=== PATIENT | male | born 1985 | race American Indian/Alaskan Native ===

== ENCOUNTER 2019-05-24 22:25 | Emergency (ER) | payer OTHER ==
[2019-05-24 23:19] VITALS: BP 111/76
[2019-05-25 00:03] LABS: Hematocrit 45.1 % (35.5-45.6); Hemoglobin 15.4 gm/dl (11.8-15.2); Mean Corpuscular HGB Conc 34 % (32-34); Mean Corpuscular Volume 89 fl (84-94); Platelet Count 276 K/mm3 (140-440); Red Blood Count 5.07 M/mm3 (3.65-5.03)
[2019-05-25 00:15] LABS: Alanine Aminotransferase 38 units/L (7-56); Albumin 3.9 g/dL (3.9-5); BUN/Creatinine Ratio 18; Blood Urea Nitrogen 16 mg/dL (9-20); Calcium 9.9 mg/dL (8.4-10.2); Hemolysis Index 18
[2019-05-25 00:29] LABS: Bacteria,Urine 1+ /HPF (Negative); Bilirubin,Urine NEG (Negative); Blood,Urine NEG (Negative); Color,Urine Yellow (Yellow); Mucus,Urine 2+ /HPF; Urobilinogen,Urine < 2.0 mg/dL (<2.0)
[2019-05-25] MEDS ORDERED: NACL 0.9% 1000 ML 1,000 ML IV ONE ×2 (00:47→02:42)
[2019-05-25] MEDS ORDERED: PEPCID IV ONE (00:47)
[2019-05-25] MEDS ORDERED: ZOFRAN IV ONE (00:47)
[2019-05-25] MEDS ORDERED: MORPHINE IV ONE (00:47)
[2019-05-25] MEDS ORDERED: BENADRYL IV ONE (02:42)
[2019-05-25] MEDS ORDERED: REGLAN IV ONE (02:42)
[2019-05-25] MEDS ORDERED: TORADOL IV ONE (02:42)
--- NOTE | 2019-05-25 03:07 | Cat Scan Report ---
CT ABDOMEN AND PELVIS WITH CONTRAST INDICATION: N/V/-left mid to lower ABDOMINAL PAIN CONTRAST: 100 cc Omnipaque 300 IV COMPARISON: None available. All CT scans at this location are performed using CT dose reduction for ALARA by means of automated e xposure control. FINDINGS: Lung bases are clear. No pneumoperitoneum is seen. Fatty attrition of the liver is seen wit hout obvious focal lesion and without significant enlargement. Spleen is not enlarged. No urinary obs tructive changes are seen. No evidence of bowel obstruction is noted. No free fluid is seen. Appendix appears within normal limits. IMPRESSION: No acute abnormalities are seen Signer Name: Raghu Lombardo MD Signed: 05/25/2019 3:03 AM Workstation Name: [id number]
--- NOTE | 2019-05-25 03:25 | Emergency Department Report ---
ED Abdominal Pain HPI - General Chief Complaint: Abdominal Pain Stated Complaint: VOMITING, STD SCREENING Time Seen by Provider: 05/25/19 00:47 Source: patient Mode of arrival: Ambulatory Limitations: No Limitations - History of Present Illness MD Complaint: abdominal pain, other (Nausea and vomiting, diarrhea) -: Sudden, days(s) (2) Location: epigastric Radiation: LUQ Migration to: LUQ, epigastric Severity scale (0 -10): 7 Quality: cramping, aching, sharp Consistency: intermittent Improves With: nothing Worsens With: nothing Context: possible food poisoning Associated Symptoms: denies other symptoms, nausea, vomiting, diarrhea. denies: chills, constipation, dysuria, hematemesis, hematochezia, melena, hematuria, anorexia, syncope - Related Data Previous Rx's Medication Instructions Recorded Last Taken Type Dicyclomine [Bentyl] 20 mg PO Q6H PRN #24 tablet 05/25/19 Unknown Rx Ondansetron [Zofran Odt] 4 mg PO Q6HR PRN #21 tab.rapdis 05/25/19 Unknown Rx raNITIdine HCl [Zantac] 150 mg PO Q12H #30 tablet 05/25/19 Unknown Rx Allergies Allergy/AdvReac Type Severity Reaction Status Date / Time No Known Allergies Allergy Unverified 05/24/19 23:20 ED Review of Systems ROS: Stated complaint: VOMITING, STD SCREENING Other details as noted in HPI Constitutional: denies: chills, fever Eyes: denies: eye pain, eye discharge, vision change ENT: denies: ear pain, throat pain Respiratory: denies: cough, shortness of breath, wheezing Cardiovascular: denies: chest pain, palpitations Endocrine: no symptoms reported Gastrointestinal: abdominal pain, vomiting, diarrhea. denies: nausea Genitourinary: denies: urgency, dysuria Musculoskeletal: denies: back pain, joint swelling, arthralgia Skin: denies: rash, lesions Neurological: denies: headache, weakness, paresthesias Psychiatric: denies: anxiety, depression Hematological/Lymphatic: denies: easy bleeding, easy bruising ED Past Medical Hx - Past Medical History Previous Medical History?: Yes Additional medical history: Gastroenteritis - Surgical History Past Surgical History?: No - Social History Smoking Status: Never Smoker Substance Use Type: Marijuana - Medications Home Medications: Home Medications Medication Instructions Recorded Confirmed Last Taken Type Dicyclomine [Bentyl] 20 mg PO Q6H PRN #24 tablet 05/25/19 Unknown Rx Ondansetron [Zofran Odt] 4 mg PO Q6HR PRN #21 tab.rapdis 05/25/19 Unknown Rx raNITIdine HCl [Zantac] 150 mg PO Q12H #30 tablet 05/25/19 Unknown Rx ED Physical Exam - General Limitations: No Limitations General appearance: alert, in no apparent distress - Head Head exam: Present: atraumatic, normocephalic, normal inspection - Eye Eye exam: Present: normal appearance, PERRL, EOMI Pupils: Present: normal accommodation - ENT ENT exam: Present: normal exam, normal orophraynx, mucous membranes moist, TM's normal bilaterally, normal external ear exam - Neck Neck exam: Present: normal inspection, full ROM. Absent: tenderness - Respiratory Respiratory exam: Present: normal lung sounds bilaterally. Absent: respiratory distress, wheezes, rales, rhonchi, chest wall tenderness - Cardiovascular Cardiovascular Exam: Present: regular rate, normal rhythm, normal heart sounds. Absent: systolic murmur, diastolic murmur, rubs, gallop - GI/Abdominal GI/Abdominal exam: Present: soft, tenderness (epigastric ), normal bowel sounds. Absent: guarding, rebound, hyperactive bowel sounds, organomegaly, mass - Rectal Rectal exam: Present: deferred - Extremities Exam Extremities exam: Present: normal inspection, full ROM, normal capillary refill - Back Exam Back exam: Present: normal inspection, full ROM. Absent: tenderness, CVA tenderness (R), CVA tenderness (L), muscle spasm, paraspinal tenderness - Neurological Exam Neurological exam: Present: alert, oriented X3, CN II-XII intact, normal gait, reflexes normal - Psychiatric Psychiatric exam: Present: normal affect, normal mood - Skin Skin exam: Present: warm, dry, intact, normal color. Absent: rash ED Course Vital Signs 05/24/19 23:12 Temperature 98.7 F Pulse Rate 80 Respiratory 18 Rate Blood Pressure 111/76 O2 Sat by Pulse 98 Oximetry - Reevaluation(s) Reevaluation #1: 05/25/19 03:23 Patient is a 34-year-old male who presented to the ED with acute onset of persistent nausea and vomiting, diarrhea and epigastric pain for 2 days intermittently. In the ED, patient is alert and oriented 3 and is not in distress. Patient was treated in the ED for nausea and vomiting, and also given pain medication to control his abdominal pain patient was also treated with normal saline 2 L IV bolus. Lab test results were reviewed and are nonactionable. Abdomen pelvis CT scan with contrast shows no acute GI pathology. On reevaluation, patient's nausea and vomiting is well controlled with medications and patient Oral fluids in the ED without having nausea and vomiting. Patient was discharged home on pain medications, antacids and antiemetics and advised to maintain a clear liquid diet for 12-24 hours, and to follow-up with his primary care physician in 3-5 days for reevaluation. Patient was also advised to return to the ED immediately if symptoms get worse. ED Medical Decision Making - Lab Data Result diagrams: 05/24/19 23:25 05/24/19 23:25 - Radiology Data Radiology results: report reviewed, image reviewed Abdominopelvic CT scan with contrast shows no acute GI pathology. - Medical Decision Making Patient is a 34-year-old male who presented to the ED with acute onset of persistent nausea and vomiting, diarrhea and epigastric pain for 2 days intermittently. In the ED, patient is alert and oriented 3 and is not in distress. Patient was treated in the ED for nausea and vomiting, and also given pain medication to control his abdominal pain patient was also treated with normal saline 2 L IV bolus. Lab test results were reviewed and are nonactionable. Abdomen pelvis CT scan with contrast shows no acute GI pathology. On reevaluation, patient's nausea and vomiting is well controlled with medications and patient Oral fluids in the ED without having nausea and vomiting. Patient was discharged home on pain medications, antacids and antiemetics and advised to maintain a clear liquid diet for 12-24 hours, and to follow-up with his primary care physician in 3-5 days for reevaluation. Patient was also advised to return to the ED immediately if symptoms get worse. - Differential Diagnosis gastritis; gastroenteritis; colitis; appendicitis, dehydration Critical care attestation.: If time is entered above; I have spent that time in minutes in the direct care of this critically ill patient, excluding procedure time. ED Disposition Clinical Impression: Viral gastroenteritis, Nausea and vomiting in adult Abdominal pain Qualifiers: Abdominal location: epigastric Qualified Code(s): R10.13 - Epigastric pain Disposition: TO HOME OR SELFCARE Is pt being admited?: No Does the pt Need Aspirin: No Condition: Stable Instructions: Gastroenteritis (ED), Acute Nausea and Vomiting (ED), Abdominal Pain (ED) Additional Instructions: Maintain a clear liquid diet for 24-48 hours, take medications with food as advised and follow up with your primary care physician in 5-7 days for reevaluation. Return to the ED immediately if symptoms get worse. Prescriptions: Dicyclomine [Bentyl] 20 mg PO Q6H PRN #24 tablet PRN Reason: Pain , Severe (7-10) raNITIdine HCl [Zantac] 150 mg PO Q12H #30 tablet Ondansetron [Zofran Odt] 4 mg PO Q6HR PRN #21 tab.rapdis PRN Reason: Nausea Referrals: PRIMARY CARE, [Primary Care Provider] - 3-5 Days Time of Disposition: 03:28 Print Language: NEPALI
== END 2019-05-25 05:47 | disposition home or self-care (01) ==
LOC: ED 22:25
DX: A08.4 Viral intestinal infection, unspecified (principal); F12.10 Cannabis abuse, uncomplicated; Z79.899 Other long term (current) drug therapy
CPT/HCPCS: 36415; 74177; 80053; 81001; 83690; 85027; 96361; 96374; 96375; 99284; J1200; J1885; J2270; J2405; J2765; J7030; Q9967